=== PATIENT | male | born 1930 | race Caucasian/White ===

== ENCOUNTER 2017-04-16 09:00 | Emergency (ER) | payer OTHER ==
[~2017-04-16] VITALS: Ht 172.7 cm; Wt 92.6 kg
[2017-04-16 09:04] VITALS: TEMP 36.9; Ht 172.7 cm; Wt 92.6 kg
[2017-04-16] MEDS ORDERED: GI COCKTAIL PO STA (09:36)
[2017-04-16] MEDS ORDERED: ONDANSETRON INJ 2 MG/ML 2 ML VIAL IV STA (09:36)
[2017-04-16] MEDS ORDERED: SODIUM CHLORIDE 0.9% 1000ML 1,000 ML IV STA (09:36)
--- NOTE | 2017-04-16 09:53 | EMERGENCY ROOM VISIT NOTE ---
History Report prepared by Wallaceibkim: Khadijah Copeland Under the Supervision of: Dr. Bjorn Lopes M.D. First contact with patient: 09:31 Chief Complaint: ABDOMINAL PAIN Stated Complaint: BAD TASTE ON TONGUE,STOMACH GAS,BOWEL GAS History of Present Illness The patient is a 86 year old white male with a past medical history of HTN and an appendectomy who presents to the ED with a cc of constant abdominal pain beginning a week ago. Positive bad taste on his tongue, stomach gas, and ear pain. Negative recent travel, nausea, vomiting, chest pain, SOB, or smoking. The patient notes an episode of a fall where he hit his left knee about a week ago. He states his symptoms began around the same time his fall occurred. Pt last bowel movement was yesterday and he notes he took a laxative. The patient drinks well water that is not treated. Source of History: patient Onset: a week ago Position: abdomen Timing: constant Associated Symptoms: No chest pain, No SOB, No nausea Note: Pt notes bad taste on his tongue, stomach gas, and ear pain Review of Systems See HPI for pertinent positives and negatives. A total of ten systems were reviewed and were otherwise negative. Past Medical & Surgical Medical Problems: (1) HTN (hypertension) Family History Asthma Diabetes mellitus Hypertension Kidney stones Social History Smoking Status: Former Smoker Alcohol Use: occasionally Drug Use: none Marital Status: Housing Status: lives with family Occupation Status: retired Current/Historical Medications Scheduled Amoxicillin (Amoxil), 500 MG PO BID Allergies Coded Allergies: No Known Allergies (Verified , NONE, 04/16/17) Physical Exam Vital Signs Date Time Temp Pulse Resp B/P (MAP) Pulse Ox O2 Delivery O2 Flow Rate FiO2 04/16/17 12:10 81 18 138/62 97 Room Air 04/16/17 10:42 80 18 168/75 04/16/17 09:21 78 04/16/17 09:04 36.9 81 17 171/86 96 Room Air Physical Exam GENERAL: Awake, alert, well-appearing, NAD HENT: Normocephalic, atraumatic.Fullness and effusion left TM. Right TM retracted with scarring and serous effusion EYES: Normal conjunctiva. Sclera non-icteric. NECK: Supple. No nuchal rigidity. FROM. RESPIRATORY: CTAB, no rhonchi, wheezing, crackles CARDIAC: RRR, no MRG ABDOMEN:No AB tenderness to palpation, normoactive BS. MSK: No chest wall TTP, no LE edema NEURO: GCS 15, CN 2-12 intact, moves all 4s on command EXTREMITIES:Slight tendness to left patella, good extension and flexion with mild warmth. No erythema or bruising. SKIN: No rash or jaundice noted. Medical Decision & Procedures ER Provider Diagnostic Interpretation: Radiology results as stated below per my review and radiologist interpretation: PA CHEST WITH ABDOMINAL SERIES FINDINGS: A PA chest radiograph is compared to study dated 04/07/2009. The cardiomediastinal silhouette is unremarkable. There is atherosclerotic calcification of the thoracic aorta. The lungs and pleural spaces are clear. No pneumothorax is seen. The skeletal structures are osteopenic. The bony thorax is grossly intact. Degenerative change is seen throughout the thoracic spine. Supine and erect abdominal radiographs are compared to study dated 02/25/2016. There is a nonobstructed abdominal bowel gas pattern. No evidence of intraperitoneal free air is seen. Moderate fecal retention is observed. There are no abnormal abdominal calcifications. Numerous phleboliths are seen in the pelvis. Lumbosacral spondylosis is observed. The lumbosacral spine and bony pelvis appear intact. Sclerotic change is present in the sacroiliac joints, left greater than right. Postoperative change is present in the right ilium and acetabulum. IMPRESSION: 1. No active disease in the chest. 2. Nonobstructed abdominal bowel gas pattern noting moderate constipation. Electronically signed by: Casey Villasenor M.D. LEFT KNEE 3 VIEWS CLINICAL HISTORY: Fall with left knee pain. FINDINGS: AP, crosstable lateral, and sunrise views of left knee are obtained. No prior studies are available for comparison at the time of dictation. The skeletal structures are osteopenic. No fracture is seen. There is moderate tricompartmental degenerative joint space narrowing, greatest in the medial and patellofemoral compartments. Benign-appearing/degenerative calcification is noted along the lateral aspect of the medial femoral condyle. There are marginal osteophytes as well as degenerative beaking of the tibial spine. Patellar enthesophytes are observed. Prepatellar soft tissue edema is noted. There is no large joint effusion. IMPRESSION: 1. Prepatellar soft tissue edema with no radiographic evidence of left knee fracture. 2. Osteopenia and arthritic change as above. Electronically signed by: Casey Villasenor M.D. Laboratory Results 04/16/17 09:50 Red Blood Count 4.67, Mean Corpuscular Volume 87.4, Mean Corpuscular Hemoglobin 29.1, Mean Corpuscular Hemoglobin Concent 33.3, Mean Platelet Volume 9.1, Neutrophils (%) (Auto) 45.0, Lymphocytes (%) (Auto) 24.9, Monocytes (%) (Auto) 26.8, Eosinophils (%) (Auto) 3.2, Basophils (%) (Auto) 0.0, Neutrophils # (Auto ) 3.40, Lymphocytes # (Auto) 1.88, Monocytes # (Auto) 2.02, Eosinophils # (Auto ) 0.24, Basophils # (Auto) 0.00 04/16/17 09:50 Test 04/16/17 09:50 04/16/17 10:58 White Blood Count 7.55 K/uL (4.8-10.8) Red Blood Count 4.67 M/uL (4.7-6.1) Hemoglobin 13.6 g/dL (14.0-18.0) Hematocrit 40.8 % (42-52) Mean Corpuscular Volume 87.4 fL (80-100) Mean Corpuscular Hemoglobin 29.1 pg (25-34) Mean Corpuscular Hemoglobin Concent 33.3 g/dl (32-36) Platelet Count 219 K/uL (130-400) Mean Platelet Volume 9.1 fL (7.4-10.4) Neutrophils (%) (Auto) 45.0 % Lymphocytes (%) (Auto) 24.9 % Monocytes (%) (Auto) 26.8 % Eosinophils (%) (Auto) 3.2 % Basophils (%) (Auto) 0.0 % Neutrophils # (Auto) 3.40 K/uL (1.4-6.5) Lymphocytes # (Auto) 1.88 K/uL (1.2-3.4) Monocytes # (Auto) 2.02 K/uL (0.11-0.59) Eosinophils # (Auto) 0.24 K/uL (0-0.5) Basophils # (Auto) 0.00 K/uL (0-0.2) RDW Standard Deviation 41.6 fL (36.4-46.3) RDW Coefficient of Variation 13.1 % (11.5-14.5) Immature Granulocyte % (Auto) 0.1 % Immature Granulocyte # (Auto) 0.01 K/uL (0.00-0.02) Anion Gap 6.0 mmol/L (3-11) Est Creatinine Clear Calc Drug Dose 55.7 ml/min Estimated GFR () 71.9 Estimated GFR (Non- 62.0 BUN/Creatinine Ratio 11.9 (10-20) Calcium Level 9.1 mg/dl (8.5-10.1) Total Bilirubin 0.5 mg/dl (0.2-1) Direct Bilirubin < 0.1 mg/dl (0-0.2) Aspartate Amino Transf (AST/SGOT) 17 U/L (15-37) Alanine Aminotransferase (ALT/SGPT) 22 U/L (12-78) Alkaline Phosphatase 60 U/L (45-117) Troponin I < 0.015 ng/ml (0-0.045) Total Protein 7.2 gm/dl (6.4-8.2) Albumin 3.8 gm/dl (3.4-5.0) Lipase 177 U/L (73-393) Urine Color YELLOW Urine Appearance CLEAR (CLEAR) Urine pH 5.0 (4.5-7.5) Urine Specific [place] 1.016 (1.000-1.030) Urine Protein NEG (NEG) Urine Glucose (UA) NEG (NEG) Urine Ketones TRACE (NEG) Urine Occult Blood NEG (NEG) Urine Nitrite NEG (NEG) Urine Bilirubin NEG (NEG) Urine Urobilinogen NEG (NEG) Urine Leukocyte Esterase NEG (NEG) Laboratory results reviewed by me Medications Administered Medications (Trade) Dose Ordered Sig/Sherri Route Start Time Stop Time Status Last Admin Dose Admin Sodium Chloride 1,000 ml @ 999 mls/hr Q1H1M STAT IV 04/16/17 09:36 04/16/17 10:36 DC 04/16/17 09:36 999 MLS/HR Ondansetron HCl (Zofran Inj) 4 mg NOW STAT IV 04/16/17 09:36 04/16/17 09:37 DC 04/16/17 10:38 4 MG Al Hydroxide/Mg Hydroxide (Maalox Susp) 30 ml STK-MED ONCE .ROUTE 04/16/17 10:34 04/16/17 10:35 DC 04/16/17 10:39 30 ML Lidocaine HCl (Viscous Lidocaine 2% Soln) 20 ml STK-MED ONCE .ROUTE 04/16/17 10:34 04/16/17 10:35 DC 04/16/17 10:39 20 ML ECG Indication: abdominal pain Rate (beats per minute): 80 Rhythm: normal sinus Findings: no ectopy, other (Normal intervals, normal axis, no STSt changes, no T-wave inversion) ED Course 0938: The patient was evaluated in room A4B. A complete history and physical exam was performed. 1207: I reevaluated the patient. Discussed results and discharge instructions: He verbalized understanding and agreement. The patient is ready for discharge. Medical Decision The patient is a 86 year old white male with a past medical history of HTN and an appendectomy who presents to the ED with a cc of constant abdominal pain beginning a week ago. Differential diagnosis: Etiologies such as appendicitis, diverticulitis, PUD, biliary pathology, UTI, pancreatitis, obstruction, mesenteric ischemia, aortic pathology, infections, inflammatory bowel disease, renal colic, as well as others were entertained. Patient was seen and evaluated at the bedside. Patient has been complaining of some better taste in the back of his mouth in addition to some increased gas. Patient states he had a bowel movement yesterday typically use a laxative to help with his bowel movements. Patient also did complain of a fall which occurred 3-4 weeks ago and does complain of some mild left knee pain she does not complain of any shortness of breath or chest pain. Patient does not have any overt signs of trauma with the exception of a mild effusion to the left knee. Patient does have good flexion and extension and doesn't have any neurovascular deficit distally. Patient did have blood work, EKG, abdomen and chest x-ray along with supportive care. Patient's blood work fairly unremarkable. LFTs and lipase within normal limits. Troponin negative with a nonischemic EKG. Less likely ACS or atypical chest pain. Less likely infectious given a white count of 7 hemoglobin 13. Patient left knee film with some swelling but do not believe this to be septic and etiology given normal white count afebrile and no erythema. Patient UA also negative. Patient feeling well. Patient was able tolerate by mouth. Given amoxicillin for otitis. Patient does not have a surgical abdomen and do not believe that at this time the patient requires any further workup with advanced imaging. Patient was given strict follow-up, discharge, and return precautions. Medication Reconcilliation Current Medication List: was personally reviewed by me Blood Pressure Screening Patient's blood pressure: Elevated blood pressure Blood pressure disposition: Referred to PCP Impression Primary Impression: GERD (gastroesophageal reflux disease) Additional Impressions: Knee pain, left Otitis media Scribe Attestation The scribe's documentation has been prepared under my direction and personally reviewed by me in its entirety. I confirm that the note above accurately reflects all work, treatment, procedures, and medical decision making performed by me. Departure Information Dispostion Home / Self-Care Prescriptions Amoxicillin (AMOXIL) 500 Mg Cap 500 MG PO BID for 7 Days, #14 CAP Prov: Bjorn Lopes M.D. 04/16/17 Referrals No Doctor, Assigned (PCP) Forms HOME CARE DOCUMENTATION FORM, IMPORTANT VISIT INFORMATION Patient Instructions My [facility] Additional Instructions Please return to the emergency department if you have worsening or recurrent symptoms not amenable to at-home treatment. Please call for a follow-up appointment with her primary care physician. Please take your medications as prescribed. If you have other concerns and/or complaints please feel free to also call your primary care physician's office or return the ED for further evaluation, management, and treatment. You may take tylenol 650 mg every 6 hours as needed for pain. Please take your antibiotics with food as they can cause some upset stomach and/or diarrhea. Consider eating yogurt and/or taking a probiotic to help replenish good gut bacteria. You have been examined and treated today on an emergency basis only. This is not a substitute for, or an effort to provide, complete comprehensive medical care. It is impossible to recognize and treat all injuries or illnesses in a single emergency department visit. It is therefore important that you follow up closely with [facility]. Call as soon as possible for an appointment. Thank you for your time and consideration. I look forward to speaking with you again soon. Please don't hesitate to call us if you have any questions. Problem Qualifiers Primary Impression: GERD (gastroesophageal reflux disease) Esophagitis presence: esophagitis presence not specified Qualified Codes: K21.9 - Gastro-esophageal reflux disease without esophagitis Additional Impressions: Knee pain, left Chronicity: acute Qualified Codes: M25.562 - Pain in left knee Otitis media Otitis media type: serous Chronicity: acute Laterality: bilateral Recurrence: not specified as recurrent Qualified Codes: H65.03 - Acute serous otitis media, bilateral
[2017-04-16 10:09] LABS: COMPLETE YES; EOS % 3.2 %; HEMATOCRIT 40.8 % (42-52); IG% 0.1 %; LYMPH % 24.9 %; LYMPH ABS # 1.88 K/uL (1.2-3.4); MEAN CELL VOLUME 87.4 fL (80-100); MEAN CORPUSCULAR HEMOGLOBIN 29.1 pg (25-34); MEAN CORPUSCULAR HGB CONC 33.3 g/dl (32-36); MEAN PLATELET VOLUME 9.1 fL (7.4-10.4); MONO % 26.8 %; PLATELET COUNT 219 K/uL (130-400); RED BLOOD COUNT 4.67 M/uL (4.7-6.1); WHITE BLOOD COUNT 7.55 K/uL (4.8-10.8)
[2017-04-16 10:27] LABS: ALT/SGPT 22 U/L (12-78); BLOOD UREA NITROGEN 13 mg/dl (7-18); BUN/CREATININE RATIO 11.9 (10-20); CALCIUM 9.1 mg/dl (8.5-10.1); CARBON DIOXIDE 29 mmol/L (21-32); CHLORIDE 103 mmol/L (98-107); CREATININE 1.09 mg/dl (0.60-1.40); GLUCOSE 99 mg/dl (70-99); POTASSIUM 4.1 mmol/L (3.5-5.1); SODIUM 138 mmol/L (136-145)
[2017-04-16 10:32] LABS: ALKALINE PHOSPHATASE 60 U/L (45-117); AST/SGOT 17 U/L (15-37)
[2017-04-16] MEDS ORDERED: LIDOCAINE HCL 2% VISC SOLN 20 ML UDC ONE (10:34)
[2017-04-16] MEDS ORDERED: ALUMINUM/MAGNESIUM SUSP 30 ML UDC ONE (10:34)
[2017-04-16 11:10] LABS: URINE APPEARANCE CLEAR (CLEAR); URINE BILIRUBIN NEG (NEG); URINE COLOR YELLOW; URINE NITRITE NEG (NEG); URINE SPECIFIC GRAVITY 1.016 (1.000-1.030); UROBILINOGEN NEG (NEG); ZZUR CULT IF INDIC CLEAN CATCH NO
[2017-04-16 11:16] LABS: MANUAL MICROSCOPIC REQUIRED? NO; REVIEW REQ? NO
--- NOTE | 2017-04-16 11:39 | DIAGNOSTIC IMAGING REPORT ---
PA CHEST WITH ABDOMINAL SERIES CLINICAL HISTORY: Generalized abdominal pain. FINDINGS: A PA chest radiograph is compared to study dated 04/07/2009. The cardiomediastinal silhouette is unremarkable. There is atherosclerotic calcification of the thoracic aorta. The lungs and pleural spaces are clear. No pneumothorax is seen. The skeletal structures are osteopenic. The bony thorax is grossly intact. Degenerative change is seen throughout the thoracic spine. Supine and erect abdominal radiographs are compared to study dated 02/25/2016. There is a nonobstructed abdominal bowel gas pattern. No evidence of intraperitoneal free air is seen. Moderate fecal retention is observed. There are no abnormal abdominal calcifications. Numerous phleboliths are seen in the pelvis. Lumbosacral spondylosis is observed. The lumbosacral spine and bony pelvis appear intact. Sclerotic change is present in the sacroiliac joints, left greater than right. Postoperative change is present in the right ilium and acetabulum. IMPRESSION: 1. No active disease in the chest. 2. Nonobstructed abdominal bowel gas pattern noting moderate constipation. Electronically signed by: Casey Villasenor M.D. 04/16/2017 11:38 AM Dictated Date/Time: 04/16/2017 11:36 AM
--- NOTE | 2017-04-16 11:45 | DIAGNOSTIC IMAGING REPORT ---
LEFT KNEE 3 VIEWS CLINICAL HISTORY: Fall with left knee pain. FINDINGS: AP, crosstable lateral, and sunrise views of left knee are obtained. No prior studies are available for comparison at the time of dictation. The skeletal structures are osteopenic. No fracture is seen. There is moderate tricompartmental degenerative joint space narrowing, greatest in the medial and patellofemoral compartments. Benign-appearing/degenerative calcification is noted along the lateral aspect of the medial femoral condyle. There are marginal osteophytes as well as degenerative beaking of the tibial spine. Patellar enthesophytes are observed. Prepatellar soft tissue edema is noted. There is no large joint effusion. IMPRESSION: 1. Prepatellar soft tissue edema with no radiographic evidence of left knee fracture. 2. Osteopenia and arthritic change as above. Electronically signed by: Casey Villasenor M.D. 04/16/2017 11:44 AM Dictated Date/Time: 04/16/2017 11:42 AM
[2017-04-16] MEDS ORDERED: AMOX500C3 PO (12:01)
[2017-04-16 12:10] VITALS: BP 138/62; PULSE 81; O2SAT 97
== END 2017-04-16 12:21 | disposition home or self-care (01) ==
LOC: C.EDB 09:01 → C.EDA 12:21
DX: K21.9 Gastro-esophageal reflux disease without esophagitis (principal); M25.562 Pain in left knee; H65.03 Acute serous otitis media, bilateral; W19.XXXA Unspecified fall, initial encounter; I10 Essential (primary) hypertension; Z90.89 Acquired absence of other organs; Z82.49 Family history of ischemic heart disease and other diseases of the circulatory system; Z83.3 Family history of diabetes mellitus; Z87.891 Personal history of nicotine dependence

== ENCOUNTER 2018-08-19 19:51 | Inpatient (IN) ==
[2018-08-19] MEDS ORDERED: SODIUM CHLORIDE 0.9% 1000ML 2,000 ML IV ONE (20:28)
[2018-08-19] MEDS ORDERED: dilTIAZem HCl 5 MG/ML 5 ML VIAL IV STA (20:28)
[2018-08-19] MEDS ORDERED: dilTIAZem HCl 125 MG in DEXTROSE 5% 100 ML IV SCH (20:30)
[2018-08-19 20:38] LABS: Hematocrit (blood only) 44.5 % (42-52); Hemoglobin 15.5 g/dL (14.0-18.0); Mean Corpuscular Hgb Conc 34.8 g/dL (32-36); Mean Corpuscular Volume 87.4 fL (80-100); Mean Platelet Volume 9.6 fL (7.4-10.4); Platelet Count 227 K/uL (130-400); RDW Coefficient of Variation 13.2 % (11.5-14.5); RDW Standard Deviation 42.1 fL (36.4-46.3); Red Blood Count 5.09 M/uL (4.7-6.1); White Blood Count 10.99 K/uL (4.8-10.8)
[2018-08-19 20:46] LABS: Alanine Aminotransferase 18 U/L (12-78); Albumin Level 3.7 gm/dl (3.4-5.0); Aspartate Aminotransferase 15 U/L (15-37); BUN Creatinine Ratio 8.8 (10-20); Blood Urea Nitrogen 10 mg/dl (7-18); Calcium 9.1 mg/dl (8.5-10.1); Carbon Dioxide 27 mmol/L (21-32); Chloride 102 mmol/L (98-107); Creatinine Clr Calc Pharmacy 47.9 ml/min; Est GFR (African American) 64.4; Est GFR (Non-African American) 55.5; Glucose 139 mg/dl (70-99); Potassium 3.9 mmol/L (3.5-5.1); Sodium 136 mmol/L (136-145)
[2018-08-19 20:50] LABS: Albumin Globulin Ratio 0.9 (0.9-2); Alkaline Phosphatase 71 U/L (45-117); Bilirubin,Total 0.5 mg/dl (0.2-1); Globulin 3.9 gm/dl (2.5-4.0); Total Protein 7.6 gm/dl (6.4-8.2); Troponin I < 0.015 ng/ml (0-0.045)
--- NOTE | 2018-08-19 21:01 | XRay Report ---
XR chest 1V portable CLINICAL HISTORY: Chest pain. Shortness of breath. COMPARISON STUDY: Chest radiograph April 16, 2017. FINDINGS: No pneumothorax or pleural effusion is noted. There is no evidence for pulmonary edema or p neumonia. Mild left basilar opacity favors atelectasis and epicardial fat pad. The appearance of the chest is unchanged. Cardiomediastinal silhouette is unremarkable. Degenerative changes of both should ers are incidentally noted. IMPRESSION: No acute cardiopulmonary findings. Electronically signed by: Jose Vaughn M.D. 08/19/2018 8:59 PM
[2018-08-19 21:29] LABS: ALC (manual) 2.15 K/uL (1.2-3.4); Eosinophils # (manual) 0.59 K/uL (0-0.5); Lymphocytes # (manual) 0.88 K/uL (1.2-3.4); Monocytes # (manual) 3.73 K/uL (0.11-0.59); Monocytes % (manual) 33.9 %; Neutrophils % (manual) 41.1 %; RBC Morphology Unremarkable; Reactive Lymphocytes # (manual) 1.27 K/uL
[2018-08-19] MEDS ORDERED: LEVALBUTEROL HCL 0.63 MG/3 ML NEB NEB STA (21:39)
[2018-08-19 22:50] LABS: Magnesium 2.3 mg/dl (1.8-2.4)
[2018-08-19] MEDS ORDERED: OPTIRAY 320 125ml IV PRN (23:05)
--- NOTE | 2018-08-19 23:05 | History & Physical Report ---
Date of Service August 19, 2018 Assessment & Plan (1) Atrial fibrillation with RVR: Atrial fibrillation with RVR/hypertension-- The patient will be admitted to telemetry for serial cardiac enzymes, serial EKG's, cardiac rhythm monitoring and a 2-D echocardiogram with Dopplers. The patient had already given Cardizem 10 mg IV push, followed by Cardizem drip to have been titrated to 10 mg/h. We will add Cardizem 60 mg p.o. now, and then 30 mg p.o. 4 times daily starting in 6 hours. As the oral Cardizem becomes therapeutic, will hopefully try to taper Cardizem drip down and then off. Consult cardiology Present on Admission?: Yes (2) HTN (hypertension): See above Present on Admission?: Yes (3) GERD (gastroesophageal reflux disease): No symptoms at this time. Present on Admission?: Yes (4) Acute bronchitis with bronchospasm: Start Solu-Medrol 40 mg IV every 8 hours, ceftriaxone 1 g IV daily, Xopenex/Atrovent nebulizers every 6 hours while awake and every 2 hours as needed NSS plus KCl 20 mEq at 100 mils per hour. Sputum Gram stain and culture. Nasal cannula 2 L oxygen, titrate to keep pulse ox than equal to 94%. Present on Admission?: Yes History of Present Illness Chief Complaint: The patient presents to the emergency department with a cough that has resolved, worsening shortness of breath, and then the onset of palpitations last evening. He denies any other signs or symptoms of infection. He has not taken anything for his symptoms, and is come to the emergency department due to progression of the breathing and palpitations. Primary Care Provider: NO PCP The patient is an 88-year-old male who presents with the above symptoms. He denies any sick exposures or recent travels. He has never had any heart rhythm irregularities, and is usually healthy without respiratory symptoms. Allergies Allergy/AdvReac Type Severity Reaction Status Date / Time corn Allergy Intermediate ITCHY Verified 08/19/18 20:41 peanut Allergy Intermediate ITCHY Verified 08/19/18 20:41 tomato Allergy Intermediate ITCHY Verified 08/19/18 20:41 FRIED FOODS Allergy Intermediate ITCHY Uncoded 08/19/18 20:41 GREASY FOODS Allergy Intermediate ITCHY Uncoded 08/19/18 20:41 MANY FOOD ALLERGIES Allergy Intermediate ITCHY Uncoded 08/19/18 20:41 Home Medications Home Medications Medication Instructions Recorded Confirmed Type No Known Home Medications 08/19/18 08/19/18 History Past Med/Surg History Social History Current Living Situation: Alone current occupational status: retired Other Information That Helps Us Care for You: No Feels Safe at Home: Yes Safety Concerns: Feels Safe At This Time Smoking Status: Never smoker Do You Dip or Chew Tobacco: No Second Hand Exposure: No Tobacco Cessation Education Requested by Patient: No Hx Alcohol Use: No Hx Substance Use: No Beliefs That Will Affect Care: None Preferred Language: Tamazight Communication Ability: Effective Legal Nurse Consultant Required: No Review of Systems The patient denies chest pain, lower extremity swelling, sore throat, fevers, chills, sweats, weight change, fatigue, nausea, vomiting, diarrhea , constipation, abdominal pain, pelvic pain, blood in urine or stool, dysuria, urinary frequency or urgency, lightheadedness, dizziness, headache, memory loss , loss of consciousness, rash, abnormal bruising or bleeding, imbalance, focal or generalized weakness, numbness or tingling in arms or legs, generalized arthralgias or myalgias, back or neck pain, or night sweats. The review of systems is otherwise negative other than for that already noted above, and at least 10 systems have been reviewed. Physical Exam 2 Vital Signs (Past 24 Hours): Last Vital Signs Temp 37.0 C 08/19/18 21:52 Pulse 132 H 08/19/18 22:31 Resp 30 H 08/19/18 22:31 BP 149/71 H 08/19/18 22:31 Pulse Ox 99 08/19/18 22:31 Physical Exam: The patient is awake, alert and oriented �3, well developed and well nourished, normocephalic and atraumatic, lying in bed and in no acute distress. HEENT--PERRL, EOMI, mucous membranes and oropharynx dry. Neck--supple. No JVD. No bruits. Thyroid normal, trachea midline, no adenopathy. Heart--normal S1 and S2. No murmurs, rubs or gallops. Lungs--decreased breath sounds throughout, with wheezes bilaterally. Abdomen--normal bowel sounds and soft. Nontender. Nondistended. Extremities--no cyanosis or clubbing. No edema. There are good distal pulses b/ l. Dermatologic--normal skin turgor, normal color, no abnormal lymph nodes, no rash. Neurologic--cranial nerves II through XII grossly intact. Rheumatologic--normal range of motion. Psychiatric--normal affect. Results & Data Laboratory Results Laboratory Results WBC 10.99 K/uL (4.8-10.8) H 08/19/18 20:17 RBC 5.09 M/uL (4.7-6.1) 08/19/18 20:17 Hgb 15.5 g/dL (14.0-18.0) 08/19/18 20:17 Hct 44.5 % (42-52) 08/19/18 20:17 MCV 87.4 fL (80-100) 08/19/18 20:17 MCH 30.5 pg (25-34) 08/19/18 20:17 MCHC 34.8 g/dL (32-36) 08/19/18 20:17 RDW Std Deviation 42.1 fL (36.4-46.3) 08/19/18 20:17 RDW Coeff of Kenan 13.2 % (11.5-14.5) 08/19/18 20:17 Plt Count 227 K/uL (130-400) 08/19/18 20:17 MPV 9.6 fL (7.4-10.4) 08/19/18 20:17 Neutrophils % (Manual) 41.1 % 08/19/18 20:17 Lymphocytes % (Manual) 8.0 % 08/19/18 20:17 Reactive Lymphs % (Man) 11.6 % 08/19/18 20:17 Monocytes % (Manual) 33.9 % 08/19/18 20:17 Eosinophils % (Manual) 5.4 % 08/19/18 20:17 Neutrophils # (Manual) 4.52 K/uL (1.4-6.5) 08/19/18 20:17 Total Absolute Neuts 4.52 K/uL (1.4-6.5) 08/19/18 20:17 Lymphocytes # (Manual) 0.88 K/uL (1.2-3.4) L 08/19/18 20:17 Reactive Lymphs # 1.27 K/uL 08/19/18 20:17 Total Abs Lymphocytes 2.15 K/uL (1.2-3.4) 08/19/18 20:17 Monocytes # (Manual) 3.73 K/uL (0.11-0.59) H 08/19/18 20:17 Eosinophils # (Manual) 0.59 K/uL (0-0.5) H 08/19/18 20:17 RBC Morphology Unremarkable 08/19/18 20:17 Sodium 136 mmol/L (136-145) 08/19/18 20:17 Potassium 3.9 mmol/L (3.5-5.1) 08/19/18 20:17 Chloride 102 mmol/L (98-107) 08/19/18 20:17 Carbon Dioxide 27 mmol/L (21-32) 08/19/18 20:17 Anion Gap 8.0 (3-11) 08/19/18 20:17 BUN 10 mg/dl (7-18) 08/19/18 20:17 Creatinine 1.18 mg/dl (0.6-1.4) 08/19/18 20:17 Est Cr Clr Drug Dosing 47.9 ml/min 08/19/18 20:17 Est GFR ( Amer) 64.4 08/19/18 20:17 Est GFR (Non-Af Amer) 55.5 08/19/18 20:17 BUN/Creatinine Ratio 8.8 (10-20) L 08/19/18 20:17 Glucose 139 mg/dl (70-99) H 08/19/18 20:17 Calcium 9.1 mg/dl (8.5-10.1) 08/19/18 20:17 Magnesium 2.3 mg/dl (1.8-2.4) 08/19/18 20:17 Total Bilirubin 0.5 mg/dl (0.2-1) 08/19/18 20:17 AST 15 U/L (15-37) 08/19/18 20:17 ALT 18 U/L (12-78) 08/19/18 20:17 Alkaline Phosphatase 71 U/L (45-117) 08/19/18 20:17 Troponin I 0.032 ng/ml (0-0.045) 08/20/18 00:14 Total Protein 7.6 gm/dl (6.4-8.2) 08/19/18 20:17 Albumin 3.7 gm/dl (3.4-5.0) 08/19/18 20:17 Globulin 3.9 gm/dl (2.5-4.0) 08/19/18 20:17 Albumin/Globulin Ratio 0.9 (0.9-2) 08/19/18 20:17 Lipase 105 U/L (73-393) 08/19/18 20:17 Influenza Type A Ag Neg for Influ A (Neg) 08/19/18 Unknown Influenza Type B Ag Neg for Influ B (Neg) 08/19/18 Unknown Diagnostic Findings [place], [place] [phone] XRay Report Patient: SHI ORELLANA Date: 08/19/18 MR#: [id number]: [address] Acct ID:[id number]: Date: 1930[facility] Zip: [place] [address] Age: 88Location: ED Sex: M Room/Bed: Att Phy: Diagnosis: COLD, IRREGULAR HEART BEAT Yelitza Phy: PCP,NO Service Date: 08/19/18 Fam Phy: Interpreting Phy: Jose Vaughn MD Admit Phy: Ordering Phy: Sal Schulz DO cc: ~ XR chest 1V portable CLINICAL HISTORY: Chest pain. Shortness of breath. COMPARISON STUDY: Chest radiograph April 16, 2017. FINDINGS: No pneumothorax or pleural effusion is noted. There is no evidence for pulmonary edema or pneumonia. Mild left basilar opacity favors atelectasis and epicardial fat pad. The appearance of the chest is unchanged. Cardiomediastinal silhouette is unremarkable. Degenerative changes of both shoulders are incidentally noted. IMPRESSION: No acute cardiopulmonary findings. Electronically signed by: Jose Vaughn M.D. 08/19/2018 8:59 PM Medications Administered Home Medications Medication Instructions Recorded Confirmed No Known Home Medications 08/19/18 08/19/18 Code Status & VTE Plan Code Status Full code VTE Prophylaxis Plan VTE Prophylaxis will be ordered: Yes
[2018-08-19] MEDS ORDERED: dilTIAZem HCL 30 MG TAB PO STA (23:23)
[2018-08-19] MEDS ORDERED: ACETAMINOPHEN 1000 MG/100 ML IV IV PRN (23:58)
[2018-08-19] MEDS ORDERED: ACETAMINOPHEN 325 MG TAB PO PRN (23:58)
[2018-08-19] MEDS ORDERED: POLYETHYLENE (MIRALAX) 17 GM PACK PO PRN (23:58)
[2018-08-20] MEDS ORDERED: cefTRIAXone SODIUM 1,000 MG/50 ML BAG IV SCH
[2018-08-20] MEDS: NSS + 20MEQ KCL 20 MEQ/1,000 ML BAG IV SCH ×2 (00:57→14:40)
--- NOTE | 2018-08-20 00:57 | Emergency Department Note ---
Entered by Nithya Nam acting as a scribe for History of Present Illness General Chief complaint: Arrhythmia/Palpitations Stated complaint: COLD, IRREGULAR HEART BEAT Source: patient History of Present Illness Onset (ago): day(s) (yesterday evening) Location: chest Pain Consistency: + now resolved (SOB) Quality: + other (palpitations) Associated symptoms: + cough, + shortness of breath (resolved) and + other ( Positive sneezing. Negative ear pain, throat pain,vomiting, diarrhea, leg swelling, or hx of Afib); no chest pain The patient is a 88 year old male who presents to the Emergency Room with complaints of palpitations beginning yesterday evening. He reports he began sneezing last night and then developed a cough. Pt had some SOB which has resolved but denies any ear pain, throat pain, chest pain, vomiting, diarrhea, leg swelling, or hx of Afib. No other exacerbating or remitting factors. Pt does not take blood thinners. Home Medications Home Medications Medication Instructions Recorded Confirmed Type No Known Home Medications 08/19/18 08/19/18 History Allergies Allergy/AdvReac Type Severity Reaction Status Date / Time corn Allergy Intermediate ITCHY Verified 08/19/18 20:41 peanut Allergy Intermediate ITCHY Verified 08/19/18 20:41 tomato Allergy Intermediate ITCHY Verified 08/19/18 20:41 FRIED FOODS Allergy Intermediate ITCHY Uncoded 08/19/18 20:41 GREASY FOODS Allergy Intermediate ITCHY Uncoded 08/19/18 20:41 MANY FOOD ALLERGIES Allergy Intermediate ITCHY Uncoded 08/19/18 20:41 Past Med/Surg History Medical History GERD (gastroesophageal reflux disease) (Acute) Family History Other Family history non-contributory Social History current occupational status: retired Feels Safe at Home: Yes Smoking Status: Never smoker Review of Systems See HPI for pertinent positives & negatives. and A total of 10 systems reviewed and were otherwise negative Physical Exam Vital Signs Vital Signs - 24 hr 08/19/18 20:01 08/19/18 20:05 08/19/18 20:28 Temperature 37.5 C Temperature Source Oral Sepsis Recent Fever Within 48 Hours No Sepsis Action Taken by Nursing No Action Required Pulse Rate 144 H Pulse Rate [Apical] 150 H Pulse Rate [Radial] Respiratory Rate 30 H Respiratory Effort / Characteristics Labored Short of Breath Respiratory Depth Normal Respiratory Pattern Regular Blood Pressure 163/135 H Blood Pressure Mean 144 Pulse Oximetry 95 96 Oxygen Delivery Method Room Air Room Air Room Air 08/19/18 20:30 08/19/18 20:33 08/19/18 21:01 Temperature Temperature Source Sepsis Recent Fever Within 48 Hours Sepsis Action Taken by Nursing Pulse Rate 144 H 155 H 104 H Pulse Rate [Apical] Pulse Rate [Radial] Respiratory Rate 24 23 28 H Respiratory Effort / Characteristics Respiratory Depth Respiratory Pattern Blood Pressure 124/101 H 136/96 Blood Pressure Mean 108 109 Pulse Oximetry Oxygen Delivery Method 08/19/18 21:02 08/19/18 21:30 08/19/18 21:52 Temperature 37.0 C Temperature Source Oral Sepsis Recent Fever Within 48 Hours Sepsis Action Taken by Nursing Pulse Rate 106 H 120 H Pulse Rate [Apical] Pulse Rate [Radial] Respiratory Rate 31 H 35 H Respiratory Effort / Characteristics Respiratory Depth Respiratory Pattern Blood Pressure 153/98 H Blood Pressure Mean 116 Pulse Oximetry 94 Oxygen Delivery Method Room Air 08/19/18 22:00 08/19/18 22:29 08/19/18 22:30 Temperature Temperature Source Sepsis Recent Fever Within 48 Hours Sepsis Action Taken by Nursing Pulse Rate 119 H 119 H Pulse Rate [Apical] Pulse Rate [Radial] 124 H Respiratory Rate 40 H 18 35 H Respiratory Effort / Characteristics Spontaneous Respiratory Depth Respiratory Pattern Blood Pressure 153/98 H Blood Pressure Mean 116 Pulse Oximetry 93 94 99 Oxygen Delivery Method Room Air 08/19/18 22:31 08/19/18 22:44 08/19/18 23:23 Temperature Temperature Source Sepsis Recent Fever Within 48 Hours Sepsis Action Taken by Nursing Pulse Rate 132 H 114 H Pulse Rate [Apical] Pulse Rate [Radial] Respiratory Rate 30 H 18 Respiratory Effort / Characteristics Respiratory Depth Respiratory Pattern Blood Pressure 149/71 H 164/93 H Blood Pressure Mean 97 Pulse Oximetry 99 91 Oxygen Delivery Method Room Air Room Air GENERAL: Sitting up in bed, chronically ill appearing, dyspenic in conversation EYE EXAM: normal conjunctiva. OROPHARYNX: no exudate, no erythema, lips, buccal mucosa, and tongue normal and mucous membranes are moist NECK: supple, no nuchal rigidity, no adenopathy, non-tender. No JVD LUNGS: Clear to auscultation. Normal chest wall mechanics HEART: Tachycardic and irregularly irregular, no murmurs, S1 normal and S2 normal ABDOMEN: abdomen soft, non-tender, normo-active bowel, sounds, no masses, no rebound or guarding. BACK: Back is symmetrical on inspection and there is no deformity, no midline tenderness, no CVA tenderness. SKIN: no rashes and no bruising UPPER EXTREMITIES: upper extremities are grossly normal. LOWER EXTREMITIES: No pitting edema. NEURO EXAM: Normal sensorium, cranial nerves II-XII grossly intact, normal speech, no gross weakness of arms, no gross weakness of legs. Course ED COURSE: Vital signs were reviewed and showed tachycardic and irregularly irregular The patients medical record was reviewed The above diagnostic studies were performed and reviewed. ED treatments and interventions as stated above. 2017: The patient was evaluated in room B9. A complete history and physical examination was performed. 2138: I checked on the patient at this time. His heart rate is in the 1teens 4: I reviewed the patient's case with Dr. Rutherford, [facility] Hospitalist. He will evaluate the patient for further management. 7: Upon reevaluation, the patient is feeling slightly better. I discussed my findings with the patient and he understands and agrees with the treatment plan. Based on the patients age, coexisting illnesses, exam and lab findings the decision to treat as an inpatient was made. The patient remained stable while under my care. The patient will be evaluated for further management. Consultations Consultation #1: I reviewed the patient's case with Dr. Rutherford, [facility] Hospitalist. He will evaluate the patient for further management. Time: 22:14 Administered Medications Diltiazem HCl 125 mg/ Dextrose 125 mls @ 0 mls/hr IV .Q0M [facility]; Protocol Stop: 09/18/18 20:29 Last Admin: 08/19/18 20:48 Dose: 5 mg/hr, 5 mls/hr Ioversol (Optiray 320 125ml) 119 ml IV ONCE PRN PRN Reason: Interaction Checking Stop: 08/23/18 23:04 Last Admin: 08/19/18 23:06 Dose: 119 ml Discontinued Medications Diltiazem HCl (Cardizem) 10 mg IV NOW STA Stop: 08/19/18 20:29 Last Admin: 08/19/18 20:48 Dose: 10 mg Diltiazem HCl (Cardizem) 60 mg PO NOW STA Stop: 08/19/18 23:24 Last Admin: 08/19/18 23:32 Dose: 60 mg Sodium Chloride (Nss 1000ml) 2,000 mls @ 999 mls/hr IV .Q2H1M ONE Stop: 08/19/18 22:28 Last Infusion: 08/19/18 22:41 Dose: 0 mls/hr Admin: 08/19/18 20:48 Dose: 999 mls/hr Levalbuterol HCl (Xopenex 0.63 Mg/3 Ml Neb) 0.63 mg NEB NOW STA Stop: 08/19/18 21:40 Last Admin: 08/19/18 22:28 Dose: 0.63 mg Medical Decision Making Differential Diagnosis Differential diagnosis: Etiologies such as premature contractions, electrolyte abnormality, cardiac dysrhythmia, thyroid dysfunction, pulmonary embolism, infection, gastrointestinal, as well as others were entertained. Medical Records Attestation: I reviewed the patient's medical records. Home Medications Current Medication List: was personally reviewed by me Laboratory Data Attestation: I reviewed the patient's lab results. Result diagrams: 08/19/18 20:17 08/19/18 20:17 Lab Results 08/19/18 08/19/18 08/19/18 Range/Units 20:17 20:17 20:17 WBC 10.99 H (4.8-10.8) K/uL RBC 5.09 (4.7-6.1) M/uL Hgb 15.5 (14.0-18.0) g/dL Hct 44.5 (42-52) % MCV 87.4 (80-100) fL MCH 30.5 (25-34) pg MCHC 34.8 (32-36) g/dL RDW Std Deviation 42.1 (36.4-46.3) fL RDW Coeff of Kenan 13.2 (11.5-14.5) % Plt Count 227 (130-400) K/uL MPV 9.6 (7.4-10.4) fL Neutrophils % (Manual) 41.1 % Lymphocytes % (Manual) 8.0 % Reactive Lymphs % (Man) 11.6 % Monocytes % (Manual) 33.9 % Eosinophils % (Manual) 5.4 % Neutrophils # (Manual) 4.52 (1.4-6.5) K/uL Total Absolute Neuts 4.52 (1.4-6.5) K/uL Lymphocytes # (Manual) 0.88 L (1.2-3.4) K/uL Reactive Lymphs # 1.27 K/uL Total Abs Lymphocytes 2.15 (1.2-3.4) K/uL Monocytes # (Manual) 3.73 H (0.11-0.59) K/uL Eosinophils # (Manual) 0.59 H (0-0.5) K/uL RBC Morphology Unremarkable Sodium 136 (136-145) mmol/L Potassium 3.9 (3.5-5.1) mmol/L Chloride 102 (98-107) mmol/L Carbon Dioxide 27 (21-32) mmol/L Anion Gap 8.0 (3-11) BUN 10 (7-18) mg/dl Creatinine 1.18 (0.6-1.4) mg/dl Est Cr Clr Drug Dosing 47.9 ml/min Est GFR ( Amer) 64.4 Est GFR (Non-Af Amer) 55.5 BUN/Creatinine Ratio 8.8 L (10-20) Glucose 139 H (70-99) mg/dl Calcium 9.1 (8.5-10.1) mg/dl Magnesium 2.3 Cancelled (1.8-2.4) mg/dl Total Bilirubin 0.5 (0.2-1) mg/dl AST 15 (15-37) U/L ALT 18 (12-78) U/L Alkaline Phosphatase 71 (45-117) U/L Troponin I < 0.015 (0-0.045) ng/ml Total Protein 7.6 (6.4-8.2) gm/dl Albumin 3.7 (3.4-5.0) gm/dl Globulin 3.9 (2.5-4.0) gm/dl Albumin/Globulin Ratio 0.9 (0.9-2) Lipase 105 (73-393) U/L Influenza Type A Ag (Neg) Influenza Type B Ag (Neg) 08/19/18 08/20/18 Range/Units Unknown 00:14 WBC (4.8-10.8) K/uL RBC (4.7-6.1) M/uL Hgb (14.0-18.0) g/dL Hct (42-52) % MCV (80-100) fL MCH (25-34) pg MCHC (32-36) g/dL RDW Std Deviation (36.4-46.3) fL RDW Coeff of Kenan (11.5-14.5) % Plt Count (130-400) K/uL MPV (7.4-10.4) fL Neutrophils % (Manual) % Lymphocytes % (Manual) % Reactive Lymphs % (Man) % Monocytes % (Manual) % Eosinophils % (Manual) % Neutrophils # (Manual) (1.4-6.5) K/uL Total Absolute Neuts (1.4-6.5) K/uL Lymphocytes # (Manual) (1.2-3.4) K/uL Reactive Lymphs # K/uL Total Abs Lymphocytes (1.2-3.4) K/uL Monocytes # (Manual) (0.11-0.59) K/uL Eosinophils # (Manual) (0-0.5) K/uL RBC Morphology Sodium (136-145) mmol/L Potassium (3.5-5.1) mmol/L Chloride (98-107) mmol/L Carbon Dioxide (21-32) mmol/L Anion Gap (3-11) BUN (7-18) mg/dl Creatinine (0.6-1.4) mg/dl Est Cr Clr Drug Dosing ml/min Est GFR ( Amer) Est GFR (Non-Af Amer) BUN/Creatinine Ratio (10-20) Glucose (70-99) mg/dl Calcium (8.5-10.1) mg/dl Magnesium (1.8-2.4) mg/dl Total Bilirubin (0.2-1) mg/dl AST (15-37) U/L ALT (12-78) U/L Alkaline Phosphatase (45-117) U/L Troponin I 0.032 (0-0.045) ng/ml Total Protein (6.4-8.2) gm/dl Albumin (3.4-5.0) gm/dl Globulin (2.5-4.0) gm/dl Albumin/Globulin Ratio (0.9-2) Lipase (73-393) U/L Influenza Type A Ag Neg for Influ A (Neg) Influenza Type B Ag Neg for Influ B (Neg) Imaging Data Radiologist's Impression: Radiology results as stated below per my review and the radiologist's interpretation: XR chest 1V portable CLINICAL HISTORY: Chest pain. Shortness of breath. COMPARISON STUDY: Chest radiograph April 16, 2017. FINDINGS: No pneumothorax or pleural effusion is noted. There is no evidence for pulmonary edema or pneumonia. Mild left basilar opacity favors atelectasis and epicardial fat pad. The appearance of the chest is unchanged. Cardiomediastinal silhouette is unremarkable. Degenerative changes of both shoulders are incidentally noted. IMPRESSION: No acute cardiopulmonary findings. Electronically signed by: Jose Vaughn M.D. 08/19/2018 8:59 PM ECG Data Attestation: I personally reviewed and interpreted this ECG as follows: Indication: palpitations Rate (beats per minute): 142 Rhythm: atrial fibrillation (with RVR) Findings: + other (normal axis) and + ST depression (inferior and lateral) Blood Pressure Blood Pressure Findings: Elevated blood pressure Blood Pressure Disposition: further management by hospitalist DELIA Narrative Patient is an 88-year-old male who presents the ER for cough shortness of breath which started last night. Upon presentation is found to be in A. fib with RVR and heart rate in the 150s. Labs are obtained and showed a leukocytosis of 11,000. No significant anemia. BMP along with LFTs bilirubin and troponin was unremarkable. Lipase was normal. Influenza was negative. Chest x-ray was unremarkable. EKG confirmed A. fib with RVR. He was given 2 L IV normal saline. He was placed on a Cardizem drip and given Cardizem bolus. He was given IV Cardizem bolus of 10 mg and placed on a Cardizem drip at 5 mg an hour. Patient was updated bedside and admitted to the hospitalist for further workup. Heart rate did trend down to the 110s. Impression & Plan Atrial fibrillation with RVR Critical Care Time I have personally spent greater than 35 minutes of critical care time in the direct management of this patient. This includes bedside care, interpretation of diagnostic studies, and testing, discussion with consultants, patient, and family members, and other required patient management activities. This 35 minutes is in excess of all separately billable procedures. Critical Care Time: Yes Total Critical Care Time: 35 Discharge Plan Visit Data *Final* Discharge Date/Time: 08/19/18 23:23 Chief Complaint: Arrhythmia/Palpitations Stated Complaint: COLD, IRREGULAR HEART BEAT ED Provider: Sal Schulz Discharge Problem: Atrial fibrillation with RVR Patient Disposition: Admitted As Inpatient Discharge Instructions Interventions: ED Discharge Assessment Last Done: 08/19/18 23:23 The scribe's documentation has been prepared under my direction and personally reviewed by me in its entirety. I confirm that the note above accurately reflects all work, treatment, procedures, and medical decision making performed by me.
[2018-08-20] MEDS: methylPREDNISolone 40 MG in SYRINGE 0 ML IV SCH ×2 (00:58→09:00)
[2018-08-20] MEDS: IPRATROPIUM BROMIDE NEB SOLN 0.02% 2.5 ML VIAL INH SCH ×2 (01:44→14:08)
[2018-08-20] MEDS: LEVALBUTEROL 1.25MG/0.5ML NEB INH SCH ×2 (01:46→14:09)
[2018-08-20] MEDS ORDERED: XOPENEX/ATROVENT 1.25mg/0.5MG NEB COMBO NEB SCH (02:00)
[2018-08-20] MEDS: dilTIAZem HCL 30 MG TAB PO SCH ×2 (05:59→12:00)
[2018-08-20 06:05] LABS: Eosinophils # (auto) 0.02 K/uL (0-0.5); Eosinophils % (auto) 0.3 %; Hematocrit (blood only) 42.9 % (42-52); Hemoglobin 14.6 g/dL (14.0-18.0); Immature Granulocytes # (auto) 0.02 K/uL (0.00-0.02); Immature Granulocytes % (auto) 0.3 %; Lymphocytes % (auto) 9.2 %; Mean Corpuscular Volume 88.8 fL (80-100); Mean Platelet Volume 9.7 fL (7.4-10.4); Monocytes # (auto) 0.47 K/uL (0.11-0.59); Monocytes % (auto) 6.1 %; Neutrophils # (auto) 6.44 K/uL (1.4-6.5); Neutrophils % (auto) 84.1 %; Platelet Count 218 K/uL (130-400); RDW Coefficient of Variation 13.3 % (11.5-14.5); RDW Standard Deviation 43.5 fL (36.4-46.3); Red Blood Count 4.83 M/uL (4.7-6.1); White Blood Count 7.65 K/uL (4.8-10.8)
[2018-08-20 06:40] LABS: Albumin Level 3.4 gm/dl (3.4-5.0); BUN Creatinine Ratio 8.9 (10-20); Calcium 8.6 mg/dl (8.5-10.1); Creatinine Clr Calc Pharmacy 47.5 ml/min; Est GFR (African American) 71.6; Est GFR (Non-African American) 61.8; Potassium 4.2 mmol/L (3.5-5.1)
[2018-08-20 06:43] LABS: Albumin Globulin Ratio 0.9 (0.9-2); Bilirubin,Total 0.6 mg/dl (0.2-1); Globulin 3.8 gm/dl (2.5-4.0); Total Protein 7.2 gm/dl (6.4-8.2)
[2018-08-20 06:52] LABS: INR 1.1 (0.9-1.1); Partial Thromboplastin Ratio 1.2; Partial Thromboplastin Time 31.6 Seconds (21.0-31.0); Prothrombin Time 10.7 Seconds (9.0-12.0)
[2018-08-20] MEDS ORDERED: ONDANSETRON INJ 2 MG/ML 2 ML VIAL IV PRN (07:51)
[2018-08-20] MEDS ORDERED: ONDANSETRON INJ 2 MG/ML 2 ML VIAL ONE (07:52)
--- NOTE | 2018-08-20 08:05 | CT Scan Report ---
CT angio chest PE protocol CLINICAL HISTORY: 88 years-old Male presenting with wheezing, coughing, clinical concern for pulmonar y embolus. TECHNIQUE: Multidetector CT angiography of the chest was performed after administration of intravenou s contrast. 3-D volumetric and/or maximum intensity projection (MIP) images were subsequently reconst ructed for review. IV contrast: 119 mL of Optiray 320. One or more dose lowering techniques were used consistent with the principles of ALARA (as low as reasonably achievable), including automatic expos ure control, mA or kV adjustment to individual patient size, and/or use of iterative reconstruction. COMPARISON: Chest x-ray from earlier the same day. CT DOSE (mGy.cm): The estimated cumulative dose is 418.84 mGy.cm. FINDINGS: [employer] topogram: Unremarkable. Pulmonary vasculature: The study is suboptimal for the assessment of the pulmonary vascular tree secondary to respiratory mo tion artifact. Allowing for limited image quality, no central filling defect to suggest pulmonary emb olus. Main pulmonary artery is not enlarged. No flattening of the interventricular septum. No intraca rdiac filling defect. Reflux of contrast into the intrahepatic IVC. Remaining chest: Soft tissues: Normal thyroid and thoracic inlet. Nonspecific subcentimeter lymph nodes in the prevasc ular and precarinal regions of the mediastinum. Few small hilar lymph nodes also suggested, right gre ater than left. Atherosclerosis of the aorta. Mild multichamber enlargement of the heart. Coronary ar albino and aortic valve calcification. No pericardial or pleural effusion. Indeterminant 2.1 cm nodule in the right adrenal gland. Lungs and airways: No pneumothorax. Mild bronchial wall thickening suggested with a lower lobe predom inance. Trace smooth interlobular septal thickening may be present. Pulmonary arteries are mildly enl arged relative to adjacent bronchi. Evaluation of the lung parenchyma is degraded by respiratory carlie on artifact. Allowing for this, no gross evidence of a focal infiltrate or nodule. Musculoskeletal: Degenerative changes of the spine. IMPRESSION: 1. Allowing for suboptimal image quality, no evidence of pulmonary embolus. 2. Allowing for respiratory motion artifact, mild volume overload/congestive change in the setting o f mild cardiomegaly. No pulmonary edema. Differential considerations include bronchitis. Electronically signed by: Augusto Torres M.D. 08/20/2018 8:04 AM
[2018-08-20] MEDS ORDERED: HEPARIN SOD 5,000 UNIT/0.5 ML VIAL SQ SCH (09:00)
--- NOTE | 2018-08-20 16:35 | Discharge Summary ---
Date of Service August 20, 2018 Admission HPI Per Admitting Provider The patient is an 88-year-old male who presents with the above symptoms. He denies any sick exposures or recent travels. He has never had any heart rhythm irregularities, and is usually healthy without respiratory symptoms. Principal Diagnosis Bronchitis Afib with RVR Discharge Exam Constitutional WD/WN, vitals as above Eyes EOM intact bilaterally; no conjunctival abnormality ENMT external ear and nose normal, oropharynx normal Neck trachea midline, no thyromegaly normal visual inspection Respiratory normal respiratory effort, lungs clear to auscultation no respiratory distress Cardiovascular RRR, no murmur, no edema Gastrointestinal (Abdomen) Inspection/Auscultation: abdomen normal to inspection; abdomen not distended Musculoskeletal no cyanosis or clubbing, extremities motor strength 5/5 Skin no rashes, warm and dry Neurologic moves all extremities and awake Psychiatric Orientation: alert, oriented to person and cooperative Discharge Data Allergies Allergy/AdvReac Type Severity Reaction Status Date / Time corn Allergy Intermediate ITCHY Verified 08/19/18 20:41 peanut Allergy Intermediate ITCHY Verified 08/19/18 20:41 tomato Allergy Intermediate ITCHY Verified 08/19/18 20:41 FRIED FOODS Allergy Intermediate ITCHY Uncoded 08/19/18 20:41 GREASY FOODS Allergy Intermediate ITCHY Uncoded 08/19/18 20:41 MANY FOOD ALLERGIES Allergy Intermediate ITCHY Uncoded 08/19/18 20:41 Consultations 08/19/18 21:44 ED Decision to Admit Stat 08/19/18 23:58 Consult Case Management - Discharge Planning Routine 08/20/18 05:00 Consult Cardiology Routine Ordered Studies 08/19/18 22:49 CT angio chest PE protocol Urgent Hospital Course (1) Atrial fibrillation with RVR: Atrial fibrillation with RVR initially. Cardioverted overnight on his own. Continued with mild tachycardia to the 90s. Patient was recommended to take metoprolol for rate-control and anticoagulation; however, he was very adamant that his heart would be fine. He reported to me that he had been told by prior heart doctors that his heart wasn't well (possibly CAD-related as he reported a doctor told him he needed to do "surgery" on his heart), but that it was fine. He reported to me he would take willis's chocolate for his heart rate and would take garlic to help thin his blood. While these beliefs are not supported by evidence, I do think the patient had capability to make his own medical decisions. While he was very tangential and circumferential, he was able to tell me why he felt the way he did and was able to repeat the risks of not taking the medications we recommended, though he minimized them by saying the supplements would take care of the issue. - Regardless, he was encouraged to follow up with cardiology as an outpatient with the patient being somewhat hedgy on whether he would do so. (2) HTN (hypertension): See above (3) GERD (gastroesophageal reflux disease): No symptoms at this time. (4) Acute bronchitis with bronchospasm: Started Solu-Medrol 40 mg IV every 8 hours. By discharge, breathing had greatly improved. CTA chest showed possible bronchitis. He was discharged on steroids and doxycycline for a bronchitis. He was also given an albuterol inhaler as well. He seemed willing to take these medications. Total Time Total Time Spent Total Time Spent (In Minutes): 45 Total Time Includes: Examination of the Patient, Discharge Planning, Medication Reconciliation and Communication With Other Providers Discharge Plan Discharge Items Patient Disposition: Home - Self-Care Reason For Visit: ATIAL FIB WITH RVR, ACUTE RESP FAILURE Discharge Diagnosis: Atrial fibrillation with rapid ventricular response, bronchitis Condition: Fair Discharge Goals: Diagnostic testing and Improve function Activity: Resume your previous activity Non-emergency contact: Primary Care Provider and Care Program Director Call non-emergency contact if: you have any medication questions, your symptoms worsen and your pain is unusual for you Follow-up/Referrals: Roderick Paul MD [Care Program Director] - (Please follow up with Dr. Paul in the office in 2-4 weeks.) Diet: Heart Healthy Addtl Provider Instructions: Mr. Klein, You were admitted to the hospital with shortness of breath and a cough. We found that your heart was in a rapid heart beat called atrial fibrillation. Luckily, it returned to a normal rhythm on its own. We advised you to start a medication to help slow the heart rate (called metoprolol) and advised you to thin your blood to help prevent stroke risk. However, you declined both of these options, and felt you could manage your heart issues on your own. We also diagnosed you with bronchitis, and you were willing to take some medication to help clear this up. We have given you a short course of medication to help with the breathing. Please take the inhaler as needed to help with your shortness of breath. Please come back to the hospital with any further shortness of breath, cough, dizziness, chest pain, or palpitations. Prescriptions: New doxycycline hyclate 100 mg capsule 100 mg PO BID 3 Days Qty: 6 RF: 0 prednisone 50 mg tablet 50 mg PO DAILY 3 Days Qty: 3 RF: 0 albuterol sulfate 90 mcg/actuation HFA aerosol inhaler 2 inha INH Q6H PRN (Reason: shortness of breath or wheezing) Qty: 8 RF: 0 No Action No Known Home Medications RF: 0 Stand-Alone Forms: [facility] Discharge Orders: Discharge Order (Routine); Ordered 08/20/18 Ordered By: Walter Pop Admission Data Admit Date/Time: 08/19/18 23:02 Attending Provider: Walter Pop Admit Provider: Sharad Rutherford Primary Care Provider: PCP,NO Other Providers: Roderick Paul ; Walter Pop Service: Telemetry Other Interventions: Discharge Summary Assessment (RN) Last Done: 08/20/18 13:46 DC Date/Time DO NOT enter until pt leaves facility: 08/20/18 14:41
--- NOTE | 2018-08-20 16:53 | Cardiology Consultation ---
Date of Consultation August 20, 2018 Assessment & Plan (1) Paroxysmal atrial fibrillation: We discussed the diagnosis. Recommended that he be on a rate controlling medications such as a beta-jayla/metoprolol. Also recommended anticoagulation for stroke risk reduction however he adamantly declined stating that he could in his blood with garlic and peppers. We discussed novel agents and he also brought up Coumadin. He continued to refused anticoagulation therapy. (2) Aortic stenosis: Non severe. Recommend periodic follow-up. He appears to be asymptomatic in this regard. (3) Left ventricular outflow tract obstruction: LV was quite hyperdynamic. Recommended beta-jayla but he declined. (4) Pulmonary hypertension: Etiology uncertain. Recommend follow-up and pulmonary evaluation if he is agreeable. (5) HTN (hypertension): Blood pressure has been elevated throughout his hospital stay. Recommended beta-jayla, but once again he has declined medical therapy. Low- sodium diet. Disposition: He has declined recommended cardiac therapy. If he is agreeable, would recommend follow-up with a workers' compensation claims examiner and also a PCP. Patient care has been discussed with Dr. Pop of the primary hospitalist service. Thank you for allowing me to participate in the care of your patient. Please call for any other questions or concerns. Sincerely, Chris Paul M.D. History of Present Illness Reason for Consultation: Atrial fibrillation Requesting Physician: Dr. Rutherford Attending Physician: Walter Pop MD History of Present Illness Mr. Klein is an 88-year-old gentleman with a history significant for hypertension who presented to [facility] on 08/19/2018 with atrial fibrillation and rapid ventricular response. He does not follow with a physician. He describes himself as a "Hobo." He owns a home with [employer] but states that he does not always sleep or resided there. He noted that his heart was racing as he felt palpitations in his epigastric area. He took his blood pressure and noted that his heart rate was as high as 165 bpm. He also felt pruritic. He denies actual chest pain. He believes that his symptoms are secondary to food allergies. He denies shortness of breath upon the onset of his symptoms which occurred last evening/night but believes that he did develop some shortness of breath while in the hospital. He denies orthopnea, PND, syncope, near-syncope, or significant edema. He denies melena, hematochezia, hematuria, vomiting, diarrhea, fevers. He does have constipation. He was noted to be in atrial fibrillation with rapid ventricular response but spontaneously converted to sinus rhythm at 1:23 a.m.. When I saw him earlier today, he was completely asymptomatic and felt back to his baseline. He had several stories about workers' compensation claims examiner that he has seen in the past, 1 of which told him that anticoagulation, specifically Coumadin, should not be used on anyone. He states that he can thin his blood with garlic and peppers. Review of systems: As above. Review of systems otherwise negative/ unremarkable. Family history: Sister at the age of 75. No known premature CAD. Social history: He smoked 2 packs per day from the age of [age]. He denies alcohol or drugs. He is . He has 2 children, 1 to his and 1 to a girlfriend. He keeps in touch with his second child. 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 He is unaccompanied. Allergies Allergy/AdvReac Type Severity Reaction Status Date / Time corn Allergy Intermediate ITCHY Verified 08/19/18 20:41 peanut Allergy Intermediate ITCHY Verified 08/19/18 20:41 tomato Allergy Intermediate ITCHY Verified 08/19/18 20:41 FRIED FOODS Allergy Intermediate ITCHY Uncoded 08/19/18 20:41 GREASY FOODS Allergy Intermediate ITCHY Uncoded 08/19/18 20:41 MANY FOOD ALLERGIES Allergy Intermediate ITCHY Uncoded 08/19/18 20:41 Home Medications Home Medications Medication Instructions Recorded Confirmed Type No Known Home Medications 08/19/18 08/19/18 History albuterol sulfate 2 inha INH Q6H PRN #8 gm 08/20/18 Rx doxycycline hyclate 100 mg PO BID 3 Days #6 cap 08/20/18 Rx prednisone 50 mg PO DAILY 3 Days #3 tab 08/20/18 Rx Patient History Medical History GERD (gastroesophageal reflux disease) (Acute) Social History Current Living Situation: Alone current occupational status: retired Other Information That Helps Us Care for You: No Feels Safe at Home: Yes Safety Concerns: Feels Safe At This Time Smoking Status: Never smoker Do You Dip or Chew Tobacco: No Second Hand Exposure: No Tobacco Cessation Education Requested by Patient: No Hx Alcohol Use: No Hx Substance Use: No Beliefs That Will Affect Care: None Communication Ability: Effective Physical Exam 2 Vital Signs (Past 24 Hours): Last Vital Signs Temp 37.1 C 08/20/18 13:46 Pulse 90 08/20/18 14:09 Resp 14 08/20/18 14:09 BP 151/85 H 08/20/18 13:46 Pulse Ox 95 08/20/18 14:09 Physical Exam: Gen.: No acute distress. Alert and oriented. HEENT: Anicteric sclera. Neck: No JVD. No bruits. Normal carotid upstrokes bilaterally. Cardiac: PMI was nonpalpable. No ventricular heave. Regular rate and rhythm. Normal S1-S2. 2/6 mid peaking systolic ejection murmur best heard at the right upper sternal border. No rubs, or gallops. Pulmonary: Mild bilateral expiratory wheezing. Abdomen: Soft, nontender, nondistended, with normoactive bowel sounds. No bruits noted. Extremities: 2+ radial pulses bilaterally. 2+ posterior tibialis pulses bilaterally. Trace bilateral lower extremity edema. No cyanosis. Psychiatric: Affect appears appropriate. Results & Data Diagnostic Findings Telemetry personally reviewed: Atrial fibrillation with rapid ventricular response converted to sinus rhythm at 1:23 a.m. on 08/20/2018. ECG personally reviewed: ECG 08/19/2018: AFib with rapid ventricular response at [address]/T-wave abnormality. ECG 08/20/2018: Sinus rhythm with PACs 77 bpm. Echo 08/20/2018: Hyperdynamic systolic function. EF > 75%. Normal wall motion. No LVH. Mild left atrial dilation. Moderate aortic stenosis. LV dynamic obstruction with intracavitary gradient of 44mmHg. RVSP 57mmHg. Medications Administered His treatment included: Diltiazem drip Normal saline Diltiazem 30 mg p.o. q.6 hours Ceftriaxone Methylprednisolone
== END 2018-08-20 14:41 | disposition home or self-care (01) | DRG 203 ==
LOC: ED 19:51 → SUATTDRO 23:02 → 2E 23:02